=== PATIENT | male | born 1975 | race Caucasian/White ===

== ENCOUNTER 2022-03-02 06:09 | Day surgery (SDC) | payer BC ==
[2022-02-26 15:24] VITALS: BMI 40.4
[2022-03-02] MEDS ORDERED: Bupivacaine 0.25% HCL 30 ML VIAL ONE (07:58)
[2022-03-02] MEDS ORDERED: Fentanyl 100 MCG/2 ML VIAL ONE (07:58)
[2022-03-02] MEDS ORDERED: PROPOFOL 20 ML ONE (07:58)
[2022-03-02] MEDS ORDERED: EPINEPHrine 1 MG/ML AMP ONE (07:59)
[2022-03-02] MEDS ORDERED: Ondansetron PF 4 MG/2 ML Vial ONE (08:00)
[2022-03-02] MEDS ORDERED: Dexamethasone 4 mg/ml Vial ONE (08:00)
[2022-03-02] MEDS ORDERED: Lidocaine 1% PF 5 ML VIAL ONE (08:00)
[2022-03-02] MEDS ORDERED: CEFAZOLIN 2 GM VIAL ONE (08:13)
[2022-03-02] MEDS ORDERED: Midazolam HCl 2 mg/2 ml Vial ONE (08:21)
[2022-03-02] MEDS ORDERED: Ketorolac Tromethamine 30 MG/ML VIAL ONE (09:03)
== END 2022-03-02 10:25 | disposition home or self-care (01) ==
LOC: CSHSDC 06:09
PROVIDERS: ATTEND Surgery
PROC: 0JBF0ZZ Excision of Left Upper Arm Subcutaneous Tissue and Fascia, Open Approach (ICD-10-PCS; principal; 2022-03-02)
DX: D17.22 Benign lipomatous neoplasm of skin and subcutaneous tissue of left arm (principal); E03.9 Hypothyroidism, unspecified; Z79.899 Other long term (current) drug therapy
CPT/HCPCS: 88304; J0171; J1100; J1885; J2250; J2405; J2704; J3010; S0020

== ENCOUNTER 2024-09-06 10:23 | Outpatient (CLI) | payer BC | END 2024-09-06 10:24 | disposition home or self-care (01) | LOC: CSHSLEEP 10:23 | PROVIDERS: ATTEND Internal Medicine | DX: G47.33 Obstructive sleep apnea (adult) (pediatric) (principal); R53.83 Other fatigue; G25.89 Other specified extrapyramidal and movement disorders; R06.83 Snoring | CPT/HCPCS: 95800 ==